=== PATIENT | female | born 1960 | race Caucasian/White ===

== ENCOUNTER → 2020-05-24 | Outpatient (CLI) | payer BC ==
--- NOTE | 2020-05-24 12:34 | RAD ---
EXAM: SHOULDER BILAT 2+V. HISTORY: Bilateral shoulder pain. COMPARISON: None. FINDINGS: Acromioclavicular joint space narrowing on the right greater than left is consistent with mild to moderate osteoarthritis on the right and minimal osteoarthritis on the left for patient age. There is mild osteophytosis along the right glenoid with preservation of joint spaces. Left glenohumeral joint spaces are maintained. Alignment is maintained bilaterally. No fractures are identified. Cervical fusion changes are partially visualized. IMPRESSION: 1. Mild right glenohumeral osteoarthritis. 2. 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 Electronically signed by: Keila Diamond MD (05/24/2020 12:31 PM) [id number]
== END | disposition home or self-care (01) ==
LOC: RAD 10:05
PROVIDERS: ATTEND Physician Assistant
DX: M19.011 Primary osteoarthritis, right shoulder (principal); M25.711 Osteophyte, right shoulder; M25.512 Pain in left shoulder
CPT/HCPCS: 73030